=== PATIENT | female | born 1970 | race Two or more races ===

== ENCOUNTER 2017-05-27 00:36 | Emergency (ER) | payer SELFPAY ==
[~2017-05-27] VITALS: Ht 162.6 cm; Wt 58.0 kg
[2017-05-27 00:39] VITALS: Ht 162.6 cm; Wt 58.0 kg
[2017-05-27] MEDS ORDERED: ASPIRIN 325 MG TAB PO STA (00:50)
[2017-05-27] MEDS ORDERED: LORAZEPAM 2 MG INJ IV ONE ×2 (01:00→01:30)
[2017-05-27 01:24] LABS: BASOPHILS % 0.5 % (0.0-2.0); EOSINOPHILS # 0.5 10^3/ul (0.0-0.5); EOSINOPHILS % 6.4 % (0.0-7.0); HEMATOCRIT 35.6 % (37.0-47.0); HEMOGLOBIN 10.9 g/dl (12.0-16.0); LYMPHOCYTES # 4.1 10^3/ul (0.8-2.9); LYMPHOCYTES % 49.6 % (15.0-51.0); MEAN CORPUSCULAR HEMOGLOBIN 24.5 pg (29.0-33.0); MEAN CORPUSCULAR HGB CONC 30.6 g/dl (32.0-37.0); MEAN CORPUSCULAR VOLUME 80.2 fl (82.0-101.0); MEAN PLATELET VOLUME 11.8 fl (7.4-10.4); MONOCYTE # 0.8 10^3/ul (0.3-0.9); MONOCYTES % 9.4 % (0.0-11.0); NEUTROPHIL # 2.8 10^3/ul (1.6-7.5); PLATELET COUNT 230 10^3/UL (140-415); RED BLOOD COUNT 4.44 10^6/ul (4.20-5.40); RED CELL DISTRIBUTION WIDTH 13.7 % (11.5-14.5); WHITE BLOOD COUNT 8.2 10^3/ul (4.8-10.8)
[2017-05-27 01:28] LABS: ADD UMIC NO; UR ASCORBIC ACID NEGATIVE (NEGATIVE); UR BILIRUBIN (Dip) NEGATIVE (NEGATIVE); UR BLOOD (Dip) NEGATIVE (NEGATIVE); UR CLARITY CLEAR (CLEAR); UR COLOR COLORLESS (YELLOW); UR GLUCOSE (Dip) NEGATIVE (NEGATIVE); UR KETONES (Dip) NEGATIVE (NEGATIVE); UR LEUKOCYTE ESTERASE (Dip) NEGATIVE Leu/ul (NEGATIVE); UR NITRITE (Dip) NEGATIVE (NEGATIVE); UR SPECIFIC GRAVITY (Dip) 1.002 (1.003-1.030); UR TOTAL PROTEIN (Dip) NEGATIVE (NEGATIVE); UR UROBILINOGEN (Dip) NEGATIVE (NEGATIVE)
[2017-05-27 01:50] LABS: ANION GAP 11 (8-16); BLOOD UREA NITROGEN 10 mg/dl (7-20); CALCIUM 10.3 mg/dl (8.4-10.2); CARBON DIOXIDE 26 mmol/L (21-31); CHLORIDE 107 mmol/L (97-110); CREATININE 0.44 mg/dl (0.44-1.00); GLUCOSE 96 mg/dl (70-220); POTASSIUM 4.2 mmol/L (3.5-5.1); SODIUM 140 mmol/L (135-144)
[2017-05-27 02:02] LABS: TROPONIN-I < 0.012 ng/ml (0.00-0.12)
--- NOTE | 2017-05-27 02:32 | RADRPT ---
PROCEDURE: XR Chest. CLINICAL INDICATION: Chest pain TECHNIQUE: Single frontal view of the chest. COMPARISON: None. FINDINGS: The cardiomediastinal silhouette is within normal limits. The lungs are clear. No signs of pleural f luid or pneumothorax are seen. The osseous structures and soft tissues are unremarkable. IMPRESSION: No evidence for active cardiopulmonary disease. RPTAT: [facility] Physician Jaspal Date Time Electronically viewed and signed by Physician Jaspal on 05/27/2017 02:31 RS/
[2017-05-27] MEDS ORDERED: ALPR0.5T PO (02:52)
[2017-05-27] MEDS ORDERED: RANI150T9 PO (02:52)
--- NOTE | 2017-05-27 03:01 | ERD ---
ER Documentation Chief Complaint Date/Time DATE: 05/27/17 TIME: 02:57 Chief Complaint chest pain, w/ sob, palpitation HPI This 46-year-old female comes in with family for having chest tightness with shortness of breath and palpitations. The tightness is across her entire chest. She feels very anxious as well. This has happened to her in the past when [place] was [place]. She has no medical problems except for history of a disc problem with her back. She has no hypertension, diabetes, high cholesterol. She is a former heavy smoker. ROS All systems reviewed and are negative except as per history of present illness. Medications Home Meds Active Scripts Alprazolam* (Xanax*) 0.5 Mg Tab, 0.5 MG PO Q8H Y for ANXIETY, #5 TAB Prov:JUAN C THEODORE DO 05/27/17 Ranitidine Hcl* (Zantac*) 150 Mg Tablet, 150 MG PO BID Y for EPIGASTRIC PAIN, # 30 TAB Prov:JUAN C THEODORE DO 05/27/17 Allergies Allergies: Coded Allergies: No Known Allergy (Unverified , 05/27/17) PMhx/Soc Medical and Surgical Hx: pt denies Surgical Hx History of Surgery: No Hx Neurological Disorder: No Hx Respiratory Disorders: No Hx Psychiatric Problems: Yes (ANXIETY) Hx Miscellaneous Medical Probl: Yes (BACK PROBLEMS) Hx Alcohol Use: No Hx Substance Use: No Hx Tobacco Use: No Smoking Status: Former smoker Physical Exam Vitals Vital Signs Date Time Temp Pulse Resp B/P Pulse Ox O2 Delivery O2 Flow Rate FiO2 05/27/17 00:55 98.8 114 20 139/67 99 Room Air 05/27/17 00:39 98.8 113 20 153/86 98 Physical Exam Const: [] While distress Head: Atraumatic Eyes: Normal Conjunctiva ENT: Normal External Ears, Nose and Mouth. Neck: Full range of motion..~ No meningismus. Resp: Clear to auscultation bilaterally Cardio: Regular tachycardia, no murmurs Abd: Soft, non tender, non distended. Normal bowel sounds Skin: No petechiae or rashes Back: No midline or flank tenderness Ext: No cyanosis, or edema Neur: Awake and alert and oriented 3, no focal deficits Psych: Appears anxious Result Diagram: 10/1/17 0110 10/1/17 0110 Results 24 hrs Laboratory Tests Test 05/27/17 01:10 White Blood Count 8.210^3/ul Red Blood Count 4.4410^6/ul Hemoglobin 10.9g/dl Hematocrit 35.6% Mean Corpuscular Volume 80.2fl Mean Corpuscular Hemoglobin 24.5pg Mean Corpuscular Hemoglobin Concent 30.6g/dl Red Cell Distribution Width 13.7% Platelet Count 83890^3/UL Mean Platelet Volume 11.8fl Neutrophils % 34.0% Lymphocytes % 49.6% Monocytes % 9.4% Eosinophils % 6.4% Basophils % 0.5% Nucleated Red Blood Cells % 0.0/100WBC Neutrophils # 2.810^3/ul Lymphocytes # 4.110^3/ul Monocytes # 0.810^3/ul Eosinophils # 0.510^3/ul Basophils # 0.010^3/ul Nucleated Red Blood Cells # 0.010^3/ul Urine Color COLORLESS Urine Clarity CLEAR Urine pH 6.0 Urine Specific [place] 1.002 Urine Ketones NEGATIVEmg/dL Urine Nitrite NEGATIVEmg/dL Urine Bilirubin NEGATIVEmg/dL Urine Urobilinogen NEGATIVEmg/dL Urine Leukocyte Esterase NEGATIVELeu/ul Urine Hemoglobin NEGATIVEmg/dL Urine Glucose NEGATIVEmg/dL Urine Total Protein NEGATIVEmg/dl Sodium Level 140mmol/L Potassium Level 4.2mmol/L Chloride Level 107mmol/L Carbon Dioxide Level 26mmol/L Anion Gap 11 Blood Urea Nitrogen 10mg/dl Creatinine 0.44mg/dl Glucose Level 96mg/dl Calcium Level 10.3mg/dl Troponin I < 0.012ng/ml Current Medications Medications (Trade) Dose Ordered Sig/[place] Route PRN Reason Start Time Stop Time Status Last Admin Dose Admin Aspirin (Aspirin) 325 mg ONCE STAT PO 05/27/17 00:50 05/27/17 00:59 DC 05/27/17 01:30 Lorazepam (Ativan) 0.5 mg ONCE ONCE IV 05/27/17 01:00 05/27/17 01:01 DC 05/27/17 01:30 Lorazepam (Ativan) 0.5 mg ONCE ONCE IV 05/27/17 01:30 05/27/17 01:31 DC 05/27/17 01:30 Procedures/MDM Chest pain shortness of breath and palpitations with tachycardia suspicious for possible anxiety reaction. Patient has a negative troponin and this has been happening on and off today. She has a nonischemic EKG and was very much improved after she was 1 mg of Ativan. At that point she was asymptomatic. I have very low suspicion for pulmonary embolism, aortic dissection, acute coronary syndrome. Discharge with primary care follow-up in the next couple of days as well as instructions to obtain outpatient echocardiogram. I am discharging the patient with copy of her laboratories. She also does have mild microcytic anemia with no history of GI bleed. EKG interpretation: Sinus tachycardia rate of 124, normal axis, no ST or T-wave changes concerning for acute ischemia, normal intervals. Monitor interpretation: Sinus tachycardia followed by normal sinus rhythm. No arrhythmias Chest x-ray interpretation: I see no acute process, I see no infiltrates, no pulmonary edema, no vitamin [place], no pneumothorax, no fractures. Departure Diagnosis: Primary Impression: Chest pain Additional Impression: Microcytic anemia Condition: Stable Patient Instructions: Chest Pain, Uncertain Cause Referrals: [facility] YOU HAVE RECEIVED A MEDICAL SCREENING EXAM AND THE RESULTS INDICATE THAT YOU DO NOT HAVE A CONDITION THAT REQUIRES URGENT TREATMENT IN THE EMERGENCY DEPARTMENT. FURTHER EVALUATION AND TREATMENT OF YOUR CONDITION CAN WAIT UNTIL YOU ARE SEEN IN YOUR DOCTORS OFFICE WITHIN THE NEXT 1-2 DAYS. IT IS YOUR RESPONSIBILITY TO MAKE AN APPOINTMENT FOR FOLOW-UP CARE. IF YOU HAVE A PRIMARY DOCTOR --you should call your primary doctor and schedule an appointment IF YOU DO NOT HAVE A PRIMARY DOCTOR YOU CAN CALL OUR PHYSICIAN REFERRAL HOTLINE AT IF YOU CAN NOT AFFORD TO SEE A PHYSICIAN YOU CAN CHOSE FROM THE FOLLOWING [facility] [address] [facility] [address] [facility] [address] [facility] [address] [facility] [address] [facility]. [facility]. [address] Additional Instructions: Call your primary care doctor TOMORROW for an appointment during the next 1-2 days.See the doctor sooner or return here if your condition worsens before your appointment time. JUAN C THEODORE DO May 27, 2017 03:01
[2017-05-27 03:11] VITALS: BP 110/59; PULSE 90; RESP 20; TEMP 98.8
== END 2017-05-27 03:14 | disposition home or self-care (01) ==
LOC: E/R 00:36
DX: R07.9 Chest pain, unspecified (principal); D50.9 Iron deficiency anemia, unspecified; Z87.891 Personal history of nicotine dependence
CPT/HCPCS: 36415; 71010; 80048; 81003; 84484; 85025; 93005; 96374; 99285; J2060